=== PATIENT | male | born 1990 | race African-American/Black ===

== ENCOUNTER 2020-06-19 09:05 | Emergency (ER) | payer OTHER ==
[~2020-06-19] VITALS: Ht 172.7 cm; Wt 90.5 kg
--- NOTE | 2020-06-19 10:06 | REP ---
INDICATION: pain following long santi for work, no known inj, ttp malleoli COMPARISON: None. TECHNIQUE: Four views left ankle. FINDINGS: There is no evidence of acute fracture, dislocation, or intrinsic bone disease.The ankle mortise is anatomic. IMPRESSION: No fracture or dislocation. <Electronically signed by Dimitri Frausto > 06/19/20 [id number]
[2020-06-19 10:59] VITALS: BP 142/66
== END 2020-06-19 11:04 | disposition home or self-care (01) ==
LOC: M ED 09:05
DX: M25.572 Pain in left ankle and joints of left foot (principal); Y99.1 Military activity; Y92.9 Unspecified place or not applicable; Y93.01 Activity, walking, marching and hiking

== ENCOUNTER → 2021-12-30 | Outpatient (CLI) | payer OTHER | LOC: M SOG 15:12 | PROVIDERS: ATTEND Orthopaedic Surgery Adult Reconstructive Orthopaedic Surgery | DX: M25.562 Pain in left knee (principal) ==

== ENCOUNTER 2022-01-02 14:03 | Day surgery (SDC) | payer OTHER ==
[~2022-01-02] VITALS: Ht 175.3 cm; Wt 88.8 kg
[~2022-01-02 14:03] MED LIST: ACETAMINOPHEN 500 MG TAB PO ONE; CelecoXIB 400 MG CAP PO ONE; GABAPENTIN 300 MG CAP PO ONE; ONDANSETRON 4MG 2ML VIAL IV ONE; ROPIvacaine 0.5% 30ML INJECTION (J2795 PER 1MG) As Ordered ONE
[2022-01-02] MEDS ORDERED: BUPIVACAINE/EPIN 0.5% 30 ML VIAL As Ordered ONE (14:44)
[2022-01-02] MEDS ORDERED: ceFAZolin SOD 2 GM in IV 1 EA IV ONE (14:45)
[2022-01-02] MEDS ORDERED: fentaNYL 100 MCG/2 ML INJECTION As Ordered ONE (15:33)
[2022-01-02] MEDS ORDERED: dexameTHASONE 4 MG/ML 1ML VIAL (J1100 PER 1MG) As Ordered ONE (15:33)
[2022-01-02] MEDS ORDERED: MIDAZOLAM INJ 2MG/2ML VIAL (J2250 PER 1MG) As Ordered ONE (15:33)
[2022-01-02] MEDS ORDERED: ONDANSETRON 4MG 2ML VIAL As Ordered ONE (15:33)
[2022-01-02] MEDS ORDERED: propofoL 200 MG/20 ML VIAL As Ordered ONE (15:33)
[2022-01-02] MEDS ORDERED: LIDOCAINE 2% 100MG/5ML SDV (FOR ANES.) As Ordered ONE (15:33)
[2022-01-02] MEDS ORDERED: HYDROmorphone HCL 2MG/ML 1ML VIAL As Ordered ONE (15:34)
[2022-01-02] MEDS ORDERED: ONDANSETRON 4MG 2ML VIAL IV PRN (17:55)
[2022-01-02] MEDS ORDERED: fentaNYL 100 MCG/2 ML INJECTION IV PRN (17:55)
[2022-01-02] MEDS ORDERED: LR 1,000 ML IV SCH ×2 (17:55→19:05)
[2022-01-02] MEDS: oxyCODONE 5MG TAB PO PRN ×2 (18:44→19:14)
[2022-01-02] MEDS: HYDROMORPHONE HCL 0.5 MG/ 0.5 ML SYRINGE (J1170 PER 1) IV PRN ×2 (18:53→19:00)
[2022-01-02] MEDS ORDERED: METOCLOPRAMIDE INJ 10MG/2ML VIAL (J2765 PER 1) IV STA (20:14)
[2022-01-02 21:20] VITALS: BP 171/100
[2022-01-03] MEDS ORDERED: UNRESOLVED CLARIFICATION ENTRY XX SCH (00:01)
== END 2022-01-02 21:30 | disposition home or self-care (01) ==
LOC: M SDC 14:03
PROVIDERS: ATTEND Orthopaedic Surgery Adult Reconstructive Orthopaedic Surgery
DX: M66.88 Spontaneous rupture of other tendons, other sites (principal)
CPT/HCPCS: 27381; 76000; 87070; 87205; 87635; C1713; J0690; J1100; J1170; J2250; J2405; J2765; J3010